=== PATIENT | female | born 1945 | race Caucasian/White ===

== ENCOUNTER 2017-02-04 11:09 | Inpatient (IN) | payer BC ==
[~2017-02-04] VITALS: Ht 157.5 cm; Wt 99.8 kg
[2017-02-04 11:10] VITALS: BP 146/94; PULSE 60; RESP 19; TEMP 97.2; O2SAT 94; O2SAT 97
--- NOTE | 2017-02-04 11:10 | NUR ---
BROUGHT IN BY PHUONG Braga AND IKER AHN, PLACED IN BED #3 AND TRIAGED. REPORT GIVEN TO DENICE
--- NOTE | 2017-02-04 11:10 | NUR ---
ER at bedside examining patient.
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
--- NOTE | 2017-02-04 11:25 | NUR ---
EKG performed at by ISAÍAS Mitchell. Physician given copy of EKG for review.
[2017-02-04] MEDS ORDERED: ONDANSETRON HCL 4 MG/2 ML VIAL IVP ONE (11:30)
[2017-02-04 11:39] LABS: BASOPHILS % (AUTO) 0.4 % (0.0-2.0); EOSINOPHILS # (AUTO) 0.2 K/uL (0.0-0.4); EOSINOPHILS % (AUTO) 2.1 % (0.0-4.0); HEMATOCRIT 38.5 % (36-48); HEMOGLOBIN 12.8 g/dL (12.0-16.0); LYMPHOCYTES # (AUTO) 1.2 K/uL (1.0-5.5); LYMPHOCYTES % (AUTO) 13.3 % (20.5-51.5); MEAN CORPUSCULAR HEMOGLOBIN 28 pg (27-31); MEAN CORPUSCULAR HGB CONC 33 % (32-36); MEAN CORPUSCULAR VOLUME 84 fL (79.0-98.0); MONOCYTES # (AUTO) 0.5 K/uL (0.0-1.0); MONOCYTES % (AUTO) 5.7 % (1.7-9.3); NEUTROPHILS # (AUTO) 7.2 K/uL (1.8-7.7); NEUTROPHILS % (AUTO) 78.5 % (40.0-70.0); PLATELET COUNT (AUTO) 303 K/uL (130-430); RED BLOOD CELL COUNT(AUTO) 4.56 MIL/uL (4.2-6.2); RED CELL DISTRIBUTION WIDTH 14.2 % (9.0-15.0); WHITE BLOOD COUNT (AUTO) 9.1 K/uL (4.8-10.8)
[2017-02-04 11:47] LABS: ANION GAP 7 (5-15); CALCIUM 8.8 mg/dL (8.4-11.0); CHLORIDE 103 mmol/L (98-107); GLUCOSE 126 mg/dL (70-99); POTASSIUM 3.8 mmol/L (3.5-5.1); SODIUM SERUM 139 mmol/L (136-145); UREA NITROGEN, BLOOD 21 mg/dL (8-21)
[2017-02-04] MEDS ORDERED: LOVA40TA75 PO (11:47)
[2017-02-04] MEDS ORDERED: AMLO5TAB4 PO (11:47)
[2017-02-04] MEDS ORDERED: MELO15TA13 PO (11:47)
[2017-02-04] MEDS ORDERED: MORP15TA60 PO (11:47)
[2017-02-04] MEDS ORDERED: METO25TA6 PO (11:47)
[2017-02-04] MEDS ORDERED: CAT.1 PO (11:47)
[2017-02-04] MEDS ORDERED: DET2 PO (11:47)
[2017-02-04] MEDS ORDERED: LORA1TAB PO (11:47)
[2017-02-04] MEDS ORDERED: MORP30TA PO (11:47)
--- NOTE | 2017-02-04 11:47 | NUR ---
Medication reconciliation completed with information provided by pt RX bottles. Any prior medication reconciliation on file was reviewed and corrected.
[2017-02-04 11:50] LABS: PROTHROMBIN TIME 10.7 SECS (9.5-12.5)
[2017-02-04 11:51] LABS: ALANINE AMINOTRANSFERASE 42 U/L (12-78); ASPARTATE AMINOTRANSFERASE 34 U/L (10-37); CHOLESTEROL 192 mg/dL (<200); HDL CHOLESTEROL 50 mg/dL (>55); LDL CHOLESTEROL 113 mg/dL (<100); TOTAL BILIRUBIN 0.6 mg/dL (0.0-1.0); TOTAL PROTEIN, SERUM 7.5 g/dL (6.4-8.3); TRIGLYCERIDES 163 mg/dL (30-150)
[2017-02-04 12:10] LABS: BILIRUBIN,URINE NEGATIVE (NEGATIVE); BLOOD, URINE NEGATIVE (NEGATIVE); CLARITY/URINE CLEAR (CLEAR); COLOR,URINE YELLOW (YELLOW); GLUCOSE,URINE NEGATIVE (NEGATIVE); KETONES,URINE NEGATIVE (NEGATIVE); LEUKOCYTE ESTERASE ,URINE TRACE (NEGATIVE); NITRITE, URINE NEGATIVE (NEGATIVE); PH,URINE 5.5 (5.0-8.0); PROTEIN URINE NEGATIVE (NEGATIVE)
[2017-02-04 12:23] LABS: BACTERIA,URINE RARE /HPF (None Seen); RBC,URINE NONE SEEN /HPF (0-3); WBC,URINE 0-3 /HPF (0-3)
--- NOTE | 2017-02-04 13:03 | NUR ---
Telemetry strip printed, interpreted as SINUS RHYTHM at 61 bpm, and placed on the chart.
--- NOTE | 2017-02-04 13:39 | NUR ---
Patient will be admitted to care of Dr Adler. Admitted to Telemetry unit. Will go to room 123-B. Belongings list completed. Summary report printed. Report will be given at bedside.
--- NOTE | 2017-02-04 13:45 | NUR ---
ADMISSION NOTE Received patient from ER via ruthann, received report from DENICE METZ. Patient admitted with diagnosis of SYNCOPE. Patient oriented to hospital routine, call light, toileting and safety-patient verbalized understanding.
[2017-02-04 14:11] VITALS: BP 126/67; PULSE 61; RESP 16; TEMP 97.6; O2SAT 92
--- NOTE | 2017-02-04 15:29 | NUR ---
CONSULT CARDIO SYNCOPE DR Gina VERMA [phone] S/W MELA CRYSTAL
--- NOTE | 2017-02-04 15:45 | NUR ---
RN ROUNDS PATIENT IS CURRENTLY RESTING IN BED, NO SIGNS OF DISTRESS NOTED, PICTURES OF PATIENT'S BRUISES ON HAND AND ARM IS DONE, WILL CONTINUE TO MONITOR PATIENT, FALL PRECAUTIONS IN PLACE, CALL SU LEFT IN PATIENT'S HAND, BED IN LOWEST POSITION, BED ALARM ON.
[2017-02-04 16:49] VITALS: BP 136/67; PULSE 60; RESP 18; TEMP 97.9; O2SAT 90
--- NOTE | 2017-02-04 17:50 | NUR ---
RN ROUNDS PATIENT IS CURRENTLY RESTING IN BED, DENIES PAIN AT THIS TIME, PATIENT STATES SHE IS JUST A LITTLE SORE, CALL SU LEFT IN PATIENT'S HAND, NO OTHER NEEDS AT THIS TIME WILL CONTINUE TO MONITOR PATIENT.
--- NOTE | 2017-02-04 18:42 | NUR ---
CLOSING NOTES PATIENT IS CURRENTLY RESTING IN BED, PATIENT STATES SHE IS IN PAIN, DR. PEREZ WAS PAGED AND CALLED BACK, HE STATED HE WILL PUT IN ORDERS, ALL NEEDS MET, WILL ENDORSE PATIENT TO PROGRAM SUPPORT SPECIALIST NURSE, FALL PRECAUTIONS IN PLACE, CALL SU LEFT IN PATIENT'S HAND, BED IN LOWEST POSITION, BED ALARM ON.
[2017-02-04 19:30] VITALS: BP 143/68; PULSE 59; RESP 16; TEMP 98; O2SAT 94
[2017-02-04] MEDS ORDERED: HYDROmorphone 2 MG/ML VIAL IVP PRN (19:30)
[2017-02-04] MEDS ORDERED: SIMVASTATIN 20 MG TABLET PO ONE (19:30)
[2017-02-04] MEDS ORDERED: LORazepam 1 MG TABLET PO PRN (19:30)
[2017-02-04] MEDS ORDERED: HYDROmorphone 1 MG INJ. 1 MG/ML AMPUL IVP PRN (19:30)
--- NOTE | 2017-02-04 19:30 | NUR ---
NOTES RECEIVED THE PT FROM THE DAY NURSE .PT A/A/OX4 FAMILY ARE AT THE BEDSIDE.BED ALARM IS ON PT INSTRUCTED TO CALL FOR THE NURSE IF SHE NEEDS HELP .IV INTACT TO HAND,LT SIDE.BRUSING NOTED TO HANDS.MONITOR IN PLACE AND SHOWS SR.CALL LIGHT WITHIN REACH.SAFETY MEASURES IN PROGRESS.CONTINUE TO MONITOR.
[2017-02-04] MEDS: MORPHINE SULFATE 30 MG Immediate Release TABLET PO SCH (20:44)
[2017-02-04] MEDS: METOPROLOL TARTRATE 25 MG TABLET PO SCH (20:46)
[2017-02-04] MEDS ORDERED: cloNIDine HCL 0.1 MG TABLET PO PRN (21:00)
--- NOTE | 2017-02-04 23:30 | NUR ---
NOTES PT SLEEPING ,NO DISTRESS NOTED.CONTINUE TO MONITOR.
[2017-02-05 01:19] VITALS: BP 145/54; PULSE 60; RESP 17; TEMP 98.2; O2SAT 93
--- NOTE | 2017-02-05 01:48 | NUR ---
NOTES PT REMAINS ASLEEP .NO DISTRESS NOTED.CALL LIGHT WITHIN REACH .CONTINUE TO MONITOR.
--- NOTE | 2017-02-05 02:47 | NUR ---
NOTES ASSISTED UP TO THE BATHROOM WITH THE WALKER .PT VOIDED ,ASSISTED BACK TO BED .C/O SEVERE BACK PAIN 06/28 RN WAS NOTIFIED.
[2017-02-05] MEDS: MORPHINE SULFATE 15 MG TABLET.SA PO PRN ×2 (03:04→16:06)
--- NOTE | 2017-02-05 03:28 | NUR ---
NOTES PT WAS MEDICATED BY THE RN.CALL LIGHT WITHIN REACH.CONTINUE TO MONITOR.
[2017-02-05 04:06] VITALS: BP 144/75; PULSE 52; RESP 13; TEMP 98.2; O2SAT 90
--- NOTE | 2017-02-05 05:16 | NUR ---
NOTES PT SLEEPING,NO DISTRESS NOTED.CONTINUE TO MONITOR.
--- NOTE | 2017-02-05 06:10 | NUR ---
CLOSING NOTES PT RESTING WITH EYES CLOSED.CALL LIGHT WITHIN REACH.WILL ENDORSE THE CARE OF THE PT TO THE DAY NURSE.
--- NOTE | 2017-02-05 07:30 | NUR ---
AM ROUNDS Pt A/Ox3, denies pain at this time...HL to LH flushes well...Pt makes needs known..Pt ambulates with steady gait using FWW, pt will call prior to getting up, pt aware of hospital fall precautions and bed alarm...Call light/phone w/in reach...Will cont to monitor
--- NOTE | 2017-02-05 08:00 | NUR ---
AMBULATED TO R/ROOM USING FWW
--- NOTE | 2017-02-05 08:15 | NUR ---
PT USING DEPENDS BROUGHT FROM HOME PT INFORMED OF THIS BEING A "DIAPER-FREE" FACILITY. PT STILL INSISTED OF WEARING HER OWN DEPENDS.
[2017-02-05] MEDS ORDERED: TOLTERODINE TARTRATE 2 MG TABLET(DETROL) PO SCH (09:00)
--- NOTE | 2017-02-05 09:46 | NUR ---
CANCELLED THE CARDIO CONSULT WITH DR VERMA. SPOKE TO LAURIE (OFFICE)
--- NOTE | 2017-02-05 09:47 | NUR ---
INFORMED DR WEISS PERSONALLY OF THE CARDIO CONSULT, RE: SYNCOPE.
--- NOTE | 2017-02-05 10:00 | NUR ---
DR WEISS AT BEDSIDE
[2017-02-05] MEDS: MORPHINE SULFATE 30 MG Immediate Release TABLET PO SCH ×2 (10:39→20:44)
[2017-02-05] MEDS: METOPROLOL TARTRATE 25 MG TABLET PO SCH ×2 (10:39→20:45)
[2017-02-05] MEDS: amLODIPine BESYLATE 5 MG TABLET PO SCH (10:39)
[2017-02-05] MEDS: MELOXICAM 7.5 MG TABLET PO SCH (10:39)
--- NOTE | 2017-02-05 10:44 | NUR ---
HOOK UP DRIVER AT BEDSIDE
[2017-02-05] MEDS ORDERED: OXYBUTYNIN CHLORIDE 5 MG TABLET PO ONE (12:00)
[2017-02-05 12:13] VITALS: BP 146/55; PULSE 58; RESP 20; TEMP 98.4; O2SAT 91
--- NOTE | 2017-02-05 13:12 | NUR ---
BACK TO BED FROM CT
[2017-02-05 16:49] VITALS: BP 144/82; PULSE 55; RESP 20; TEMP 97.8; O2SAT 93
[2017-02-05] MEDS ORDERED: LOVASTATIN 20 MG TABLET PO SCH (18:00)
[2017-02-05] MEDS ORDERED: SIMVASTATIN 20 MG TABLET PO SCH (18:00)
--- NOTE | 2017-02-05 18:00 | NUR ---
ROUNDS PT STABLE...VISTING WITH FAMILY...WILL CONT TO MONITOR
[2017-02-05 20:00] VITALS: BP 153/55; PULSE 53; RESP 19; TEMP 98.8; O2SAT 95
--- NOTE | 2017-02-05 20:02 | NUR ---
PM Shift Assessment Received patient lying in bed, AAO x4, no acute distress noted. Assessment complete, vital signs stable. States pain is tolerable at this time. Pain management education provided, patient verbalized understanding. IV noted to right wrist, saline locked at this time, flushes well, no redness or swelling noted to IV site. Bruising and minor lacerations noted to left elbow, right hand, open to air, dry with no drainage noted. Plan of care discussed with patient, she verbalized understanding. Patient is verbally able to make needs known and encouraged to do so. Call light is within reach, all fall and safety precautions in place, will continue to monitor for change in patient status.
[2017-02-05] MEDS: OXYBUTYNIN CHLORIDE 5 MG TABLET PO SCH (20:43)
--- NOTE | 2017-02-05 22:17 | NUR ---
RN Rounds Patient is resting quietly in bed, no acute distress noted. Scheduled medications administered earlier ordered per MD, patient tolerated well. Patient made comfortable in bed. Encouraged patient to call with all needs, she verbalized understanding. Call light is within reach, all fall and safety precautions in place, will continue to monitor.
[2017-02-05 23:59] VITALS: BP 149/71; PULSE 48; RESP 15; TEMP 97.6; O2SAT 91
--- NOTE | 2017-02-06 00:21 | NUR ---
RN Rounds Patient is sleeping but easily arousable, no acute distress noted. Safety education provided, no needs at this time. Call light is within reach, all fall and safety precautions in place, will continue to monitor.
--- NOTE | 2017-02-06 02:33 | NUR ---
RN Rounds Patient is resting quietly in bed, no acute distress noted. Assisted patient to restroom and safely back to bed. Patient complained of pain to back, PRN pain medication was administered as ordered per MD, will reassess for relief of pain. Call light is within reach, all fall and safety precautions in place, will continue to monitor.
[2017-02-06 04:13] VITALS: BP 137/57; PULSE 47; RESP 15; TEMP 98.9; O2SAT 90
--- NOTE | 2017-02-06 04:34 | NUR ---
RN Rounds Patient is sleeping, respirations are even and unlabored, no acute distress noted. Vital signs stable, sinus virgilio on the monitor. No non-verbal signs of pain noted at this time. Call light is within reach, all fall and safety precautions in place, will continue to monitor.
--- NOTE | 2017-02-06 06:39 | NUR ---
Closing Notes Patient is resting quietly in bed, no acute distress noted. States pain is tolerable at this time. Patient is stable, all needs met throughout shift. Will continue to monitor until endorsed to AM nurse at bedside.
[2017-02-06 06:53] LABS: SODIUM SERUM 139 mmol/L (136-145)
[2017-02-06 06:54] LABS: ALANINE AMINOTRANSFERASE 33 U/L (12-78); ALBUMIN 3.5 g/dL (3.4-4.8); ANION GAP 4 (5-15); ASPARTATE AMINOTRANSFERASE 24 U/L (10-37); CALCIUM 8.6 mg/dL (8.4-11.0); CHLORIDE 103 mmol/L (98-107); CREATININE 0.88 mg/dL (0.55-1.30); GLUCOSE 129 mg/dL (70-99); POTASSIUM 4.4 mmol/L (3.5-5.1); TOTAL BILIRUBIN 0.5 mg/dL (0.0-1.0); TOTAL PROTEIN, SERUM 7.1 g/dL (6.4-8.3); UREA NITROGEN, BLOOD 18 mg/dL (8-21)
[2017-02-06 06:55] LABS: THYROID STIMULATING HORMONE 2.88 uIu/mL (0.34-4.82)
[2017-02-06 06:56] LABS: BASOPHILS % (AUTO) 0.2 % (0.0-2.0); EOSINOPHILS # (AUTO) 0.4 K/uL (0.0-0.4); EOSINOPHILS % (AUTO) 4.4 % (0.0-4.0); HEMATOCRIT 36.8 % (36-48); HEMOGLOBIN 12.3 g/dL (12.0-16.0); LYMPHOCYTES # (AUTO) 1.2 K/uL (1.0-5.5); LYMPHOCYTES % (AUTO) 12.1 % (20.5-51.5); MEAN CORPUSCULAR HEMOGLOBIN 29 pg (27-31); MEAN CORPUSCULAR HGB CONC 34 % (32-36); MEAN CORPUSCULAR VOLUME 85 fL (79.0-98.0); MONOCYTES # (AUTO) 0.6 K/uL (0.0-1.0); MONOCYTES % (AUTO) 6.4 % (1.7-9.3); NEUTROPHILS # (AUTO) 7.7 K/uL (1.8-7.7); NEUTROPHILS % (AUTO) 76.9 % (40.0-70.0); PLATELET COUNT (AUTO) 256 K/uL (130-430); RED BLOOD CELL COUNT(AUTO) 4.31 MIL/uL (4.2-6.2); RED CELL DISTRIBUTION WIDTH 14.4 % (9.0-15.0); WHITE BLOOD COUNT (AUTO) 9.9 K/uL (4.8-10.8)
--- NOTE | 2017-02-06 07:15 | NUR ---
OPENING NOTE PATIENT RESTING COMFORTABLY AT THIS TIME. NO COMPLAINTS OF ACUTE PAIN AT THIS TIME. PATIENT DOES HAVE CHRONIC PAIN, BUT PAIN LEVEL IS TOLERABLE. NO SIGNS OF DISTRESS NOTED AT THIS TIME. WILL CONTINUE TO MONITOR FOR CHANGES IN STATUS. BED IN LOWEST POSITION, BED ALARM IS ON, AND SIDE RAILS ARE UP. PATIENTS CALL LIGHT WITHIN REACH.
[2017-02-06] MEDS: OXYBUTYNIN CHLORIDE 5 MG TABLET PO SCH (08:40)
[2017-02-06] MEDS: MELOXICAM 7.5 MG TABLET PO SCH (08:43)
[2017-02-06] MEDS: METOPROLOL TARTRATE 25 MG TABLET PO SCH (08:43)
[2017-02-06] MEDS: MORPHINE SULFATE 30 MG Immediate Release TABLET PO SCH (08:45)
[2017-02-06] MEDS: amLODIPine BESYLATE 5 MG TABLET PO SCH (08:46)
[2017-02-06 10:18] VITALS: BP 185/72; PULSE 60; RESP 14; TEMP 98; O2SAT 94
[2017-02-06 11:41] VITALS: BP 136/69; PULSE 56; RESP 16; TEMP 96.7; O2SAT 93
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
[2017-02-06 11:52] VITALS: BP 136/69; PULSE 56; RESP 16; TEMP 96.7; O2SAT 93
--- NOTE | 2017-02-06 12:00 | NUR ---
1200 NOTE PATIENT RESTING COMFORTABLY AT THIS TIME. NO COMPLAINTS OF ACUTE PAIN AT THIS TIME. PATIENT HAS CHRONIC PAIN, TOLERABLE LEVEL PER PATIENT. NO SIGNS OF DISTRESS NOTED AT THIS TIME. WILL CONTINUE TO MONITOR FOR CHANGES IN STATUS. BED IN LOWEST POSITION, BED ALARM IS ON, AND SIDE RAILS ARE UP. PATIENTS CALL LIGHT WITHIN REACH. AWAITING DISCHARGE. WILL BE PRINTING INSTRUCTIONS, PICKING UP MEDICATIONS FROM PHARMACY, AND AWAITING HER RIDE.
--- NOTE | 2017-02-06 12:40 | NUR ---
DISCHARGE PATIENT GIVEN DISCHARGE INSTRUCTIONS, VERBALIZED UNDERSTANDING. ARM BANDS ARE STILL INTACT, AND IV PATENT. WILL DISCONTINUE WHEN RIDE IS HERE TO PICK HER UP. PATIENT IS AAOX4, AND IS IN NO DISTRESS AT THIS TIME. PATIENT BELONGINGS INVENTORY COMPLETED, WILL PROPERTY CONSULTANT MEDICATIONS FROM PHARMACY PRIOR TO LEAVING THE FACILITY. WILL CONTINUE TO MONITOR FOR CHANGES IN STATUS.
--- NOTE | 2017-02-06 14:37 | NUR ---
DISCHARGE PATIENTS RIDE ARRIVED. PATIENTS IV DISCONTINUED, AND ARM BANDS ARE REMOVED. PATIENT AAOX4, STABLE, AND VERBALIZED UNDERSTANDING OF DISCHARGE INSTRUCTIONS. BELONGINGS WERE CHECKED, AND THE PATIENT AND HER MEDICATIONS AND BELONGINGS WERE WHEELED OUT TO FAMILY VEHICLE.
--- NOTE | 2017-02-09 16:38 | NUR ---
Discharge Follow Up Phone Call: POLYMERIZATION KETTLE OPERATOR called and spoke with pt ([phone]). Pt states that she is not feeling very well and is still experiencing some pain; pt's prescriptions have been filled; there are no questions regarding discharge or medication instructions; pt has a follow up appointment on 02/11/17 with the Motion Picture Printer which is also her PCP; pt has transportation to her appointment; pt will talk to her PCP about Neurology follow up. Pt did not express any other needs or concerns and denied the need for additional follow up at this time. No further follow up phone calls required at this time.
== END 2017-02-06 14:42 | disposition home or self-care (01) | DRG 307 ==
LOC: SED 11:09 → STU 13:30
PROVIDERS: ADMIT Internal Medicine Hospice and Palliative Medicine; ATTEND Internal Medicine Hospice and Palliative Medicine
DX: I35.0 Nonrheumatic aortic (valve) stenosis (principal); Z68.41 Body mass index [BMI] 40.0-44.9, adult; E66.9 Obesity, unspecified; G89.4 Chronic pain syndrome; I10 Essential (primary) hypertension; I25.10 Atherosclerotic heart disease of native coronary artery without angina pectoris; Z90.49 Acquired absence of other specified parts of digestive tract; I25.2 Old myocardial infarction; Z95.5 Presence of coronary angioplasty implant and graft; Z79.899 Other long term (current) drug therapy
CPT/HCPCS: 36415; 70450-TC; 71010; 80053; 80061; 81000-TC; 83880; 84443-TC; 84484; 85025; 85610-TC; 85730-TC; 93005; 93306; 99285; J1170; J2274